=== PATIENT | male | born 2000 | race Caucasian/White ===

== ENCOUNTER 2022-10-20 00:08 | Emergency (ER) | payer OTHER ==
[~2022-10-20] VITALS: Ht 172.7 cm; Wt 77.1 kg
[2022-10-20 00:10] VITALS: BP_SYST 128
--- NOTE | 2022-10-20 00:10 | NUR ---
Pt arrives via BLS, placed to ER hallway 1. Pt intoxicated, arouses to tactile stimulation, able to answer questions with slurred speech, smells of ETOH. VSS, NAD. Mother present and states that pt drank 2 bottles of cold duck wine along with 2 cups of Sangria. Per mother, he later vomited an unknown amount and his sister, who was drinking with him became concerned and called 911.
--- NOTE | 2022-10-20 01:00 | NUR ---
Dr. Morales assessing pt.
[2022-10-20 01:19] LABS: HEMOGLOBIN 15.2 g/dL (14.0-18.0)
[2022-10-20 01:28] LABS: BASOPHILS % (AUTO) 0.7 % (0.0-2.0); EOSINOPHILS # (AUTO) 0.2 K/uL (0.0-0.4); EOSINOPHILS % (AUTO) 2.8 % (0.0-4.0); HEMATOCRIT 45.2 % (36-54); LYMPHOCYTES % (AUTO) 34.6 % (20.5-51.5); MEAN CORPUSCULAR HEMOGLOBIN 29 pg (27-31); MEAN CORPUSCULAR HGB CONC 34 % (32-36); MEAN CORPUSCULAR VOLUME 88 fL (79.0-98.0); MONOCYTES # (AUTO) 0.4 K/uL (0.0-1.0); MONOCYTES % (AUTO) 7.4 % (1.7-9.3); NEUTROPHILS # (AUTO) 3.2 K/uL (1.8-7.7); NEUTROPHILS % (AUTO) 54.5 % (40.0-70.0); PLATELET COUNT (AUTO) 272 K/uL (130-430); RED BLOOD CELL COUNT(AUTO) 5.16 MIL/uL (4.2-6.2); RED CELL DISTRIBUTION WIDTH 12.8 % (9.0-15.0); WHITE BLOOD COUNT (AUTO) 5.8 K/uL (4.8-10.8)
[2022-10-20] MEDS ORDERED: NACL 0.9% 2,000 ML IV ONE (01:30)
[2022-10-20 01:40] LABS: CALCIUM 9.3 mg/dL (8.4-11.0); TOTAL BILIRUBIN 0.2 mg/dL (0.0-1.0)
--- NOTE | 2022-10-20 01:40 | NUR ---
Ton vazquez in [place] - 10/20/22 at 0204 by HAYDEN Pt's mother Thony jocelyne contact number: [phone]
[2022-10-20 01:41] LABS: ALBUMIN 3.8 g/dL (3.4-4.8); CREATININE 1.09 mg/dL (0.55-1.30)
--- NOTE | 2022-10-20 01:50 | NUR ---
# 18 gauge angiocath placed to LAC. Use of asceptic technique. Opsite placed over site. Blood return noted. Flushed with 10 cc of normal saline. No evidence of infiltration noted. Patient tolerated well.
--- NOTE | 2022-10-20 01:55 | NUR ---
NS bolus x 2 in progress to 18 GA PIV LAC per verbal order Dr. Morales.
--- NOTE | 2022-10-20 02:04 | NUR ---
Pt's mother, Thony provides contact number: [phone]
--- NOTE | 2022-10-20 02:30 | NUR ---
Pt easily awakened when name called. Pt with coherent speech, alert and oriented. Denies c/o nausea or discomfort. No needs verbalized, NAD.
--- NOTE | 2022-10-20 03:15 | NUR ---
NS boluses complete. Pt assisted to restroom. Ambulates with steady gait. Returns to ER hallway 1 bed. Warm blanket provided, pt drifts to sleep. NAD.
--- NOTE | 2022-10-20 04:30 | NUR ---
Pt to be discharged. Pt AAOx3, coherent speech, NAD. Will attempt to contact mother for ride home.
--- NOTE | 2022-10-20 04:43 | NUR ---
Attempted to call pt's mother (Thony) x 2 attempts at the number provided, and number confirmed with pt. No answer, left message to inform that pt is ready for discharge. Pt states that he does not have his cell phone with him, therefore unable to obtain transportation services via [employer] or [employer].
[2022-10-20 04:44] LABS: BARBITURATE, URINE NEGATIVE (NEG <=200); BENZODIAZEPINE, URINE NEGATIVE (NEG <=150); CANNABINOID, URINE NEGATIVE (NEG <=50); COCAINE, URINE NEGATIVE (NEG <=150); METHAMPHETAMINES SCREEN,URINE NEGATIVE (NEG <=500); OPIATE, URINE NEGATIVE (NEG <=100); PHENCYCLIDINE SCREEN,URINE NEGATIVE (NEG <=25); UR TRICYCLIC ANTIDEPRESSANTS NEGATIVE (NEG <=300); URINE AMPHETAMINE NEGATIVE (NEG <=500); URINE METHADONE NEGATIVE (NEG <=200); URINE OXYCODONE SCREEN NEGATIVE (NEG <=100); URINE PROPOXYPHENE SCREEN NEGATIVE (NEG <=300)
[2022-10-20 05:00] VITALS: BP_SYST 128
--- NOTE | 2022-10-20 05:00 | NUR ---
Patient given written and verbal discharge instructions and verbalizes understanding. ER MD discussed with patient the results and treatment provided. Patient in stable condition. ID arm band removed. IV catheter removed intact and dressing applied, no active bleeding. No Rx given. Patient educated on pain management and to follow up with PMD. Pain Scale 0/10. Opportunity for questions provided and answered. Medication side effect fact sheet provided. Addendum: 10/20/22 at 0523 by HAYDEN Pt discharged to ER waiting room, awaiting ride.
--- NOTE | 2022-10-20 06:30 | NUR ---
Pt leaves ER waiting room to home via taxi. Pt seen ambulatory with steady gait, NAD.
--- NOTE | 2022-10-20 07:00 | NUR ---
Mother of pt returns call, then informs that pt just arrived home via taxi.
== END 2022-10-20 05:00 | disposition home or self-care (01) ==
LOC: SED 00:08
DX: T51.91XA Toxic effect of unspecified alcohol, accidental (unintentional), initial encounter (principal); F10.129 Alcohol abuse with intoxication, unspecified; R11.10 Vomiting, unspecified; Z79.899 Other long term (current) drug therapy; Y90.6 Blood alcohol level of 120-199 mg/100 ml; Y92.89 Other specified places as the place of occurrence of the external cause
CPT/HCPCS: 99283; 96360; 96361; 80307; 80053; 83690; 85025; 36415; G0482; J7030